=== PATIENT | male | born 1960 | race Caucasian/White ===

== ENCOUNTER 2019-07-29 22:31 | Observation (INO) ==
[2019-07-29] MEDS ORDERED: Aspirin 325 MG TABLET PO ONE (23:21)
[2019-07-29 23:29] LABS: Prothrombin Time 11.3 Seconds (9.4-12.1)
[2019-07-29 23:31] LABS: Activated Partial Thrombo Time 35.1 Seconds (26.0-36.0)
[2019-07-29 23:39] LABS: Basophils # 0.1 K/mcL (0.0-0.2); Basophils % 1.4 %; Eosinophils # 0.2 K/mcL (0.0-0.6); Eosinophils % 3.4 %; Hematocrit 39.8 % (37.5-50.1); Hemoglobin 13.4 g/dL (12.9-16.9); Immature Granulocytes % 0.7 % (0-4); Lymphocytes # 1.6 K/mcL (0.6-4.6); Lymphocytes % 27.1 %; Mean Corpuscular HGB Conc 33.7 g/dL (31.6-35.5); Mean Corpuscular Hemoglobin 29.2 pg (28.0-33.3); Mean Corpuscular Volume 86.7 fL (83.0-100.0); Mean Platelet Volume 10.6 fL (9.4-12.4); Monocytes # 0.6 K/mcL (0.0-1.3); Monocytes % 9.9 %; Neutrophils # 3.4 K/mcL (1.6-8.9); Platelet Count 246 K/mcL (140-400); Red Blood Count 4.59 M/mcL (4.19-5.50); Red Cell Distribution Width 12.1 % (11.5-14.5); Segmented Neutrophils % 57.5 %; White Blood Count 5.8 K/mcL (4.3-11.1)
[2019-07-29 23:47] LABS: BUN/Creatinine Ratio 13 (6-26); Blood Urea Nitrogen 17 mg/dL (6-20); Calcium 9.8 mg/dL (8.6-10.3); Carbon Dioxide 26 mEq/L (23-29); Chloride 90 mEq/L (98-107); Glucose 161 mg/dL (70-105); Osmolality,Calculated 263 (280-300); Potassium 3.9 mEq/L (3.5-5.1); Sodium 124 mEq/L (136-145); Troponin I < 0.03 ng/mL (< 0.04); eGFR For African Americans > 60 (> 60); eGFR For Non-African Americans 57 (> 60)
[2019-07-29] MEDS ORDERED: 0.9 % Sodium Chloride 1,000 ML IVC ONE (23:52)
[2019-07-30 00:37] LABS: Bilirubin,Urine Negative (Negative); Blood,Urine Negative (Negative); Clarity,Urine Clear (Clear); Color,Urine Yellow (Yellow); Glucose,Urine (UA) Normal (Normal); Ketones,Urine Negative (Negative); Leukocyte Esterase,Urine Negative (Negative); Nitrite,Urine Negative (Negative); Protein,Urine Negative (Neg-Trace); Urobilinogen,Urine Normal (Normal)
[2019-07-30] MEDS ORDERED: Naloxone 0.4 MG/ML INJ IVP PRN (00:44)
[2019-07-30] MEDS ORDERED: *HR* Dextrose 50 % in Water (Syg) 50 ML SYRINGE IVP PRN (00:46)
[2019-07-30] MEDS ORDERED: Dextrose Gel 15 GM/37.5 ML TUBE PO PRN ×2 (00:46)
[2019-07-30] MEDS ORDERED: D5% in Water 1,000 ML IVC PRN (00:46)
[2019-07-30] MEDS ORDERED: Melatonin 3 MG TABLET PO PRN (03:19)
[2019-07-30 04:48] LABS: Hematocrit 34.6 % (37.5-50.1); Hemoglobin 12.2 g/dL (12.9-16.9); Mean Corpuscular HGB Conc 35.3 g/dL (31.6-35.5); Mean Corpuscular Volume 85.2 fL (83.0-100.0); Mean Platelet Volume 10.7 fL (9.4-12.4); Platelet Count 202 K/mcL (140-400); Red Blood Count 4.06 M/mcL (4.19-5.50); Red Cell Distribution Width 12.2 % (11.5-14.5); White Blood Count 5.7 K/mcL (4.3-11.1)
[2019-07-30 05:36] LABS: BUN/Creatinine Ratio 14 (6-26); Blood Urea Nitrogen 16 mg/dL (6-20); Carbon Dioxide 24 mEq/L (23-29); Chloride 96 mEq/L (98-107); Glucose 125 mg/dL (70-105); Osmolality,Calculated 271 (280-300); Potassium 3.5 mEq/L (3.5-5.1); Sodium 129 mEq/L (136-145); Troponin I < 0.03 ng/mL (< 0.04); eGFR For African Americans > 60 (> 60); eGFR For Non-African Americans > 60 (> 60)
[2019-07-30] MEDS ORDERED: 0.9 % Sodium Chloride 1,000 ML IVC SCH (05:45)
[2019-07-30] MEDS ORDERED: *HR* Heparin 5,000 UNIT/ML VIAL SQ SCH (06:00)
[2019-07-30] MEDS ORDERED: Insulin LISPRO 300 UNITS/3 ML VIAL SQ SCH (06:00)
[2019-07-30 06:45] VITALS: BP 122/78
[2019-07-30] MEDS ORDERED: aMILoride 5 MG TABLET PO SCH (09:00)
[2019-07-30] MEDS ORDERED: lisinopriL 20 MG TABLET PO SCH (09:00)
[2019-07-30] MEDS ORDERED: PARoxetine 20 MG TABLET PO SCH (09:00)
[2019-07-30 10:20] LABS: Estimated Average Glucose 212 mg/dl
== END 2019-07-30 13:06 | disposition home or self-care (01) ==
LOC: EMEROOARM 22:31 → 3BNU 22:31 → SUATTDRO 07-30 00:03 → 3BNU 07-30 00:25
PROVIDERS: ADMIT Internal Medicine; ATTEND Internal Medicine

== ENCOUNTER 2021-01-28 22:06 | Observation (INO) ==
[2021-01-29 00:06] LABS: Basophils # 0.1 K/mcL (0.0-0.2); Basophils % 0.9 %; Eosinophils # 0.1 K/mcL (0.0-0.6); Hematocrit 36.7 % (37.5-50.1); Hemoglobin 12.3 g/dL (12.9-16.9); Immature Granulocytes % 1.2 % (0-4); Lymphocytes # 1.2 K/mcL (0.6-4.6); Lymphocytes % 18.6 %; Mean Corpuscular HGB Conc 33.5 g/dL (31.6-35.5); Mean Corpuscular Hemoglobin 28.6 pg (28.0-33.3); Mean Corpuscular Volume 85.3 fL (83.0-100.0); Mean Platelet Volume 9.8 fL (9.4-12.4); Monocytes # 0.5 K/mcL (0.0-1.3); Monocytes % 7.7 %; Neutrophils # 4.6 K/mcL (1.6-8.9); Platelet Count 186 K/mcL (140-400); Red Cell Distribution Width 12.8 % (11.5-14.5); Segmented Neutrophils % 69.6 %; White Blood Count 6.6 K/mcL (4.3-11.1)
[2021-01-29 00:38] LABS: Alanine Aminotransferase 13 Units/L (7-52); Albumin 4.4 g/dL (3.5-5.7); Albumin/Globulin Ratio 1.8 (1.1-2.2); Alkaline Phosphatase 115 Units/L (34-104); Aspartate Amino Transferase 14 Units/L (13-39); BUN/Creatinine Ratio 13 (6-26); Bilirubin,Direct 0.1 mg/dL (0.0-0.2); Bilirubin,Indirect 0.3 mg/dL (0.0-1.0); Bilirubin,Total 0.4 mg/dL (0.3-1.0); Blood Urea Nitrogen 10 mg/dL (8-23); Carbon Dioxide 31 mEq/L (23-29); Chloride 89 mEq/L (98-107); Globulin 2.5 g/dL (2.4-3.5); Glucose 122 mg/dL (70-105); Lipase < 3 Units/L (11-82); Osmolality,Calculated 268 (280-300); Potassium 3.2 mEq/L (3.5-5.1); Sodium 129 mEq/L (136-145); Total Protein 6.9 g/dL (6.4-8.9); Troponin I < 0.03 ng/mL (< 0.04); eGFR For African Americans > 60 (> 60); eGFR For Non-African Americans > 60 (> 60)
[2021-01-29] MEDS ORDERED: Potassium Chloride Elixir 20 MEQ/15 ML UDC PO ONE ×2 (00:44→01:58)
[2021-01-29 01:35] LABS: Influenza A PCR Negative (Negative); Influenza B PCR Negative (Negative); Resp. Syncytial Virus PCR Negative (Negative); SARS-CoV-2 by PCR (In House) Negative (Negative)
[2021-01-29] MEDS ORDERED: Aspirin 81 MG TAB.CHEW PO ONE (02:05)
[2021-01-29] MEDS ORDERED: Perflutren Lipid Microsphere 1.3 ML in 0.9 % Sodium Chloride 8.7 ML IVP PRN (04:25)
[2021-01-29] MEDS ORDERED: Acetaminophen 325 MG TABLET PO PRN (04:30)
[2021-01-29] MEDS ORDERED: Ondansetron 4 MG/2 ML VIAL IVP PRN (04:30)
[2021-01-29] MEDS ORDERED: Naloxone 0.4 MG/ML INJ IVP PRN (04:30)
[2021-01-29] MEDS ORDERED: D5% in Water 1,000 ML IVC PRN (04:30)
[2021-01-29] MEDS ORDERED: *HR* Dextrose 50 % in Water (Vial) 50 ML VIAL IVP PRN (04:30)
[2021-01-29] MEDS ORDERED: Dextrose Gel 15 GM/37.5 ML TUBE PO PRN ×2 (04:30)
[2021-01-29] MEDS ORDERED: Nitroglycerin 0.4 MG TAB.SUBL SL PRN (04:57)
[2021-01-29 06:23] LABS: Prothrombin Time 11.3 Seconds (9.4-12.1)
[2021-01-29 06:25] LABS: Activated Partial Thrombo Time 30.4 Seconds (26.0-36.0)
[2021-01-29 06:28] LABS: BUN/Creatinine Ratio 10 (6-26); Blood Urea Nitrogen 10 mg/dL (8-23); Calcium 8.9 mg/dL (8.6-10.3); Carbon Dioxide 32 mEq/L (23-29); Chloride 89 mEq/L (98-107); Glucose 291 mg/dL (70-105); Osmolality,Calculated 274 (280-300); Potassium 3.8 mEq/L (3.5-5.1); Sodium 127 mEq/L (136-145); eGFR For African Americans > 60 (> 60); eGFR For Non-African Americans > 60 (> 60)
[2021-01-29 06:29] LABS: Chol/HDL Ratio 1.8 (0-4.9); Magnesium 1.4 mg/dL (1.6-2.6)
[2021-01-29 06:30] LABS: Iron 59 mcg/dL (65-175)
[2021-01-29 06:47] LABS: Ferritin 70 ng/mL (20-250)
[2021-01-29] MEDS: *HR* Heparin 5,000 UNIT/ML VIAL SQ SCH ×3 (06:55→20:21)
[2021-01-29] MEDS: Insulin LISPRO 300 UNITS/3 ML VIAL SUBQ SCH ×4 (06:57→16:58)
[2021-01-29] MEDS ORDERED: Regadenoson 0.4 MG/5 ML SYRINGE IVP ONE (07:10)
[2021-01-29 07:27] LABS: % Iron Saturation 16 % (20-55); Transferrin 258 mg/dL (203-362)
[2021-01-29] MEDS ORDERED: Insulin NPH 100 UNIT/ML (x5UNIT) SUBQ SCH (09:00)
[2021-01-29] MEDS ORDERED: hydroCHLOROthiazide 25 MG TABLET PO SCH (09:00)
[2021-01-29 09:18] LABS: Estimated Average Glucose 200 mg/dl; Hemoglobin A1C 8.6 %
[2021-01-29 09:33] LABS: Folate 8.3 ng/mL (3.0-16.0)
[2021-01-29] MEDS: atenoloL 50 MG TABLET PO SCH (09:55)
[2021-01-29] MEDS: amLODIPine 5 MG TABLET PO SCH (09:55)
[2021-01-29] MEDS: lisinopriL 20 MG TABLET PO SCH (09:55)
[2021-01-29] MEDS: Aspirin Enteric Coated 81 MG Tablet PO SCH (09:55)
[2021-01-29] MEDS: Fenofibrate 54 MG TABLET PO SCH (09:56)
[2021-01-29] MEDS: *HR* OxyCODONE/APAP 5/325 TABLET PO SCH (11:38)
[2021-01-29] MEDS: Insulin NPH 100 UNIT/ML (x5UNIT) SUBQ SCH (21:27)
[2021-01-30] MEDS: *HR* Heparin 5,000 UNIT/ML VIAL SQ SCH ×3 (05:47→21:37)
[2021-01-30 06:03] LABS: Hematocrit 35.7 % (37.5-50.1); Hemoglobin 11.9 g/dL (12.9-16.9); Mean Corpuscular HGB Conc 33.3 g/dL (31.6-35.5); Mean Corpuscular Hemoglobin 28.9 pg (28.0-33.3); Mean Corpuscular Volume 86.7 fL (83.0-100.0); Mean Platelet Volume 10.2 fL (9.4-12.4); Platelet Count 185 K/mcL (140-400); Red Blood Count 4.12 M/mcL (4.19-5.50); Red Cell Distribution Width 12.9 % (11.5-14.5)
[2021-01-30 06:17] LABS: BUN/Creatinine Ratio 14 (6-26); Blood Urea Nitrogen 13 mg/dL (8-23); Calcium 9.2 mg/dL (8.6-10.3); Carbon Dioxide 31 mEq/L (23-29); Chloride 93 mEq/L (98-107); Glucose 177 mg/dL (70-105); Osmolality,Calculated 278 (280-300); Potassium 3.8 mEq/L (3.5-5.1); Sodium 132 mEq/L (136-145); eGFR For African Americans > 60 (> 60); eGFR For Non-African Americans > 60 (> 60)
[2021-01-30] MEDS: Fenofibrate 54 MG TABLET PO SCH (08:41)
[2021-01-30] MEDS: lisinopriL 20 MG TABLET PO SCH (08:42)
[2021-01-30] MEDS: Aspirin Enteric Coated 81 MG Tablet PO SCH (08:42)
[2021-01-30] MEDS: atenoloL 50 MG TABLET PO SCH (08:42)
[2021-01-30] MEDS: Insulin NPH 100 UNIT/ML (x5UNIT) SUBQ SCH ×2 (08:43→21:38)
[2021-01-30] MEDS: amLODIPine 5 MG TABLET PO SCH (08:43)
[2021-01-30] MEDS: Insulin LISPRO 300 UNITS/3 ML VIAL SUBQ SCH ×3 (08:49→17:32)
[2021-01-30] MEDS ORDERED: Heparin 1,000 UNITS/500 mL 500 ML ONE (10:38)
[2021-01-30] MEDS ORDERED: 0.9 % Sodium Chloride 2,000 ML ONE (10:38)
[2021-01-30] MEDS ORDERED: Nitroglycerin 1,000 MCG/5 ML VIAL IV ONE (10:39)
[2021-01-30] MEDS ORDERED: *HR* Heparin 10,000 UNIT/10 ML VIAL ONE (10:39)
[2021-01-30] MEDS ORDERED: ISOVUE-370 200 ML INFUS..BTL ONE (10:39)
[2021-01-30] MEDS ORDERED: *HR* FentaNYL (PF) 100 MCG/2 ML VIAL ONE (12:07)
[2021-01-30] MEDS ORDERED: *HR* Midazolam HCl 2 MG/2 ML VIAL ONE (12:07)
[2021-01-30] MEDS: *HR* OxyCODONE/APAP 5/325 TABLET PO SCH (12:12)
[2021-01-30] MEDS: *HR* HYDROcodone/Acet 5/325 mg TABLET PO PRN ×2 (17:32→22:55)
[2021-01-31] MEDS: *HR* HYDROcodone/Acet 5/325 mg TABLET PO PRN (05:52)
[2021-01-31] MEDS: *HR* Heparin 5,000 UNIT/ML VIAL SQ SCH (05:52)
[2021-01-31 06:42] VITALS: BP 119/73; PULSE 64; TEMP 97.8; O2SAT 94
[2021-01-31 06:43] LABS: Hematocrit 36.5 % (37.5-50.1); Hemoglobin 11.7 g/dL (12.9-16.9); Mean Corpuscular HGB Conc 32.1 g/dL (31.6-35.5); Mean Corpuscular Hemoglobin 29.2 pg (28.0-33.3); Mean Platelet Volume 9.9 fL (9.4-12.4); Platelet Count 172 K/mcL (140-400); Red Blood Count 4.01 M/mcL (4.19-5.50); White Blood Count 4.3 K/mcL (4.3-11.1)
[2021-01-31 07:06] LABS: BUN/Creatinine Ratio 13 (6-26); Blood Urea Nitrogen 15 mg/dL (8-23); Calcium 9.2 mg/dL (8.6-10.3); Carbon Dioxide 30 mEq/L (23-29); Chloride 95 mEq/L (98-107); Glucose 205 mg/dL (70-105); Osmolality,Calculated 283 (280-300); Potassium 4.1 mEq/L (3.5-5.1); Sodium 133 mEq/L (136-145); eGFR For African Americans > 60 (> 60); eGFR For Non-African Americans > 60 (> 60)
[2021-01-31] MEDS: Insulin NPH 100 UNIT/ML (x5UNIT) SUBQ SCH (08:30)
[2021-01-31] MEDS: Aspirin Enteric Coated 81 MG Tablet PO SCH (08:30)
[2021-01-31] MEDS: Fenofibrate 54 MG TABLET PO SCH (08:30)
[2021-01-31] MEDS: atenoloL 50 MG TABLET PO SCH (08:30)
[2021-01-31] MEDS: lisinopriL 20 MG TABLET PO SCH (08:30)
[2021-01-31] MEDS: amLODIPine 5 MG TABLET PO SCH (08:30)
[2021-01-31] MEDS: Insulin LISPRO 300 UNITS/3 ML VIAL SUBQ SCH (08:30)
== END 2021-01-31 10:50 | disposition home or self-care (01) ==
LOC: 3ANU 22:06 → EMEROOARM 22:06 → SUATTDRO 01-29 02:57 → 3ANU 01-29 03:40
PROVIDERS: ADMIT Internal Medicine; ATTEND Internal Medicine

== ENCOUNTER 2022-02-14 20:18 | Inpatient (IN) ==
[2022-02-14 21:58] LABS: Calcium 9.4 mg/dL (8.6-10.3); Potassium 4.3 mEq/L (3.5-5.1)
[2022-02-14] MEDS ORDERED: 0.9 % Sodium Chloride 1,000 ML IVC SCH (22:45)
[2022-02-14 22:52] LABS: Basophils # 0.1 K/mcL (0.0-0.2); Basophils % 0.9 %; Eosinophils # 0.2 K/mcL (0.0-0.6); Eosinophils % 2.9 %; Hematocrit 32.3 % (37.5-50.1); Hemoglobin 11.1 g/dL (12.9-16.9); Immature Granulocytes % 0.5 % (0-4); Lymphocytes # 1.5 K/mcL (0.6-4.6); Lymphocytes % 26.7 %; Mean Corpuscular HGB Conc 34.4 g/dL (31.6-35.5); Mean Corpuscular Hemoglobin 28.5 pg (28.0-33.3); Mean Corpuscular Volume 82.8 fL (83.0-100.0); Mean Platelet Volume 9.9 fL (9.4-12.4); Monocytes # 0.5 K/mcL (0.0-1.3); Monocytes % 8.8 %; Neutrophils # 3.3 K/mcL (1.6-8.9); Platelet Count 223 K/mcL (140-400); Red Cell Distribution Width 12.2 % (11.5-14.5); Segmented Neutrophils % 60.2 %; White Blood Count 5.5 K/mcL (4.3-11.1)
[2022-02-14] MEDS ORDERED: Dextrose Gel 15 GM/37.5 ML TUBE PO PRN ×2 (23:09)
[2022-02-14] MEDS ORDERED: Ondansetron 4 MG/2 ML VIAL IVP PRN (23:09)
[2022-02-14] MEDS ORDERED: D5% in Water 1,000 ML IVC PRN (23:09)
[2022-02-14] MEDS ORDERED: *HR* Dextrose 50 % in Water (Syg) 50 ML SYRINGE IVP PRN (23:09)
[2022-02-14] MEDS ORDERED: Naloxone 0.4 MG/ML INJ IVP PRN (23:09)
[2022-02-14] MEDS ORDERED: Melatonin 3 MG TABLET PO PRN (23:09)
[2022-02-14] MEDS ORDERED: Acetaminophen 325 MG TABLET PO PRN (23:09)
[2022-02-14 23:26] LABS: Bilirubin,Urine Negative (Negative); Blood,Urine Negative (Negative); Clarity,Urine Clear (Clear); Color,Urine Light-Yellow (Yellow); Glucose,Urine (UA) 100 mg/dL (Normal); Hyaline Casts,Urine Few per lpf (None Seen); Ketones,Urine Negative (Negative); Leukocyte Esterase,Urine Negative (Negative); Nitrite,Urine Negative (Negative); PH,Urine 6.5 pH Units (5.0-8.0); Protein,Urine Negative (Neg-Trace); Specific Gravity,Urine 1.014 (1.010-1.025); Urobilinogen,Urine Normal (Normal); WBC,Urine 0-3 per hpf (0-3)
[2022-02-14 23:29] LABS: Thyroid Stimulating Hormone 0.603 mcIU/mL (0.340-5.600)
[2022-02-14 23:33] LABS: Sodium, Urine 22.8 mEq/L
[2022-02-14 23:43] LABS: Magnesium 1.2 mg/dL (1.6-2.6); Phosphorous 3.4 mg/dL (2.7-4.5)
[2022-02-15 00:06] LABS: Uric Acid 2.8 mg/dL (2.3-7.6)
[2022-02-15 05:02] LABS: Hematocrit 30.2 % (37.5-50.1); Hemoglobin 10.5 g/dL (12.9-16.9); Mean Corpuscular HGB Conc 34.8 g/dL (31.6-35.5); Mean Corpuscular Hemoglobin 28.1 pg (28.0-33.3); Mean Corpuscular Volume 80.7 fL (83.0-100.0); Mean Platelet Volume 9.9 fL (9.4-12.4); Platelet Count 201 K/mcL (140-400); Red Blood Count 3.74 M/mcL (4.19-5.50); Red Cell Distribution Width 12.1 % (11.5-14.5); White Blood Count 4.5 K/mcL (4.3-11.1)
[2022-02-15 05:21] LABS: % Iron Saturation 16 % (20-55); Iron 66 mcg/dL (65-175); Transferrin 304 mg/dL (203-362)
[2022-02-15 05:29] LABS: Alanine Aminotransferase 17 Units/L (7-52); Albumin 4.2 g/dL (3.5-5.7); Alkaline Phosphatase 36 Units/L (34-104); Aspartate Amino Transferase 21 Units/L (13-39); BUN/Creatinine Ratio 18 (6-26); Bilirubin,Total 0.5 mg/dL (0.3-1.0); Blood Urea Nitrogen 17 mg/dL (8-23); Carbon Dioxide 25 mEq/L (23-29); Chloride 82 mEq/L (98-107); Chol/HDL Ratio 2.1 (0-4.9); Cholesterol 72 mg/dL (< 200); Globulin 2.1 g/dL (2.4-3.5); Glucose 103 mg/dL (70-105); HDL Cholesterol 35 mg/dL (40-59); Magnesium 1.6 mg/dL (1.6-2.6); Osmolality,Calculated 244 (280-300); Phosphorous 2.7 mg/dL (2.7-4.5); Potassium 3.7 mEq/L (3.5-5.1); Sodium 116 mEq/L (136-145); Total Protein 6.3 g/dL (6.4-8.9); Triglycerides 196 mg/dL (< 150)
[2022-02-15] MEDS: *HR* Heparin 5,000 UNIT/ML VIAL SQ SCH ×2 (05:40→18:10)
[2022-02-15] MEDS: Insulin LISPRO 300 UNITS/3 ML VIAL SUBQ SCH ×4 (07:31→20:50)
[2022-02-15] MEDS ORDERED: 0.9 % Sodium Chloride 1,000 ML IVC SCH (07:45)
[2022-02-15 12:57] LABS: Calcium 9.2 mg/dL (8.6-10.3); Potassium 3.6 mEq/L (3.5-5.1)
[2022-02-15 16:55] LABS: Calcium 8.7 mg/dL (8.6-10.3); Potassium 3.8 mEq/L (3.5-5.1)
[2022-02-15 20:24] LABS: Calcium 8.4 mg/dL (8.6-10.3); Potassium 3.9 mEq/L (3.5-5.1)
[2022-02-15] MEDS: 0.9 % Sodium Chloride 1,000 ML IVC SCH (22:17)
[2022-02-15] MEDS: *HR* OxyCODONE/APAP 5/325 TABLET PO PRN (22:19)
[2022-02-15 23:36] LABS: Calcium 8.6 mg/dL (8.6-10.3); Potassium 3.7 mEq/L (3.5-5.1)
[2022-02-16 05:35] LABS: Calcium 8.5 mg/dL (8.6-10.3); Magnesium 1.5 mg/dL (1.6-2.6); Phosphorous 2.9 mg/dL (2.7-4.5); Potassium 3.4 mEq/L (3.5-5.1)
[2022-02-16] MEDS: *HR* Heparin 5,000 UNIT/ML VIAL SQ SCH ×2 (06:22→19:25)
[2022-02-16] MEDS ORDERED: Magnesium Sulfate 1 GM/102 ML PIGGYBACK IVPB ONE (07:27)
[2022-02-16] MEDS: Loratadine 10 MG TABLET PO SCH (08:59)
[2022-02-16] MEDS: atenoloL 50 MG TABLET PO SCH (09:00)
[2022-02-16] MEDS: Insulin LISPRO 300 UNITS/3 ML VIAL SUBQ SCH ×4 (09:02→19:58)
[2022-02-16 09:52] LABS: BUN/Creatinine Ratio 12 (6-26); Blood Urea Nitrogen 11 mg/dL (8-23); Calcium 8.8 mg/dL (8.6-10.3); Carbon Dioxide 29 mEq/L (23-29); Chloride 88 mEq/L (98-107); Glucose 167 mg/dL (70-105); Osmolality,Calculated 257 (280-300); Potassium 3.7 mEq/L (3.5-5.1); Sodium 122 mEq/L (136-145)
[2022-02-16] MEDS: 0.9 % Sodium Chloride 1,000 ML IVC SCH (12:39)
[2022-02-16] MEDS: *HR* OxyCODONE/APAP 5/325 TABLET PO PRN ×2 (13:06→21:41)
[2022-02-16 17:02] LABS: BUN/Creatinine Ratio 10 (6-26); Blood Urea Nitrogen 9 mg/dL (8-23); Calcium 8.8 mg/dL (8.6-10.3); Carbon Dioxide 30 mEq/L (23-29); Chloride 93 mEq/L (98-107); Glucose 135 mg/dL (70-105); Osmolality,Calculated 263 (280-300); Potassium 4.5 mEq/L (3.5-5.1); Sodium 126 mEq/L (136-145)
[2022-02-16 22:22] LABS: BUN/Creatinine Ratio 9 (6-26); Blood Urea Nitrogen 9 mg/dL (8-23); Calcium 8.4 mg/dL (8.6-10.3); Carbon Dioxide 28 mEq/L (23-29); Chloride 93 mEq/L (98-107); Glucose 184 mg/dL (70-105); Osmolality,Calculated 263 (280-300); Potassium 4.7 mEq/L (3.5-5.1); Sodium 125 mEq/L (136-145)
[2022-02-17] MEDS: 0.9 % Sodium Chloride 1,000 ML IVC SCH (03:17)
[2022-02-17] MEDS: *HR* Heparin 5,000 UNIT/ML VIAL SQ SCH (06:32)
[2022-02-17 07:13] VITALS: BP 139/65; TEMP 97.9; O2SAT 98
[2022-02-17] MEDS: Insulin LISPRO 300 UNITS/3 ML VIAL SUBQ SCH ×2 (07:55→11:59)
[2022-02-17] MEDS: atenoloL 50 MG TABLET PO SCH (07:56)
[2022-02-17] MEDS: *HR* OxyCODONE/APAP 5/325 TABLET PO PRN (07:56)
[2022-02-17] MEDS: Loratadine 10 MG TABLET PO SCH (07:57)
[2022-02-17 08:15] VITALS: PULSE 70
[2022-02-17 10:41] LABS: BUN/Creatinine Ratio 7 (6-26); Blood Urea Nitrogen 5 mg/dL (8-23); Calcium 7.1 mg/dL (8.6-10.3); Carbon Dioxide 20 mEq/L (23-29); Chloride 101 mEq/L (98-107); Glucose 184 mg/dL (70-105); Osmolality,Calculated 268 (280-300); Potassium 3.5 mEq/L (3.5-5.1); Sodium 128 mEq/L (136-145)
== END 2022-02-17 12:25 | disposition home or self-care (01) | DRG 640 ==
LOC: EMEROOARM 20:18 → 2NNU 20:18 → SUATTDRO 23:01 → 2NNU 02-15
PROVIDERS: ADMIT Internal Medicine; ATTEND Internal Medicine